=== PATIENT | female | born 1955 | race Caucasian/White ===

== ENCOUNTER 2019-12-08 13:23 | Emergency (ER) | payer OTHER, SELFPAY ==
--- NOTE | ~2019-12-08 | XR_ITS ---
XR foot LT min 3V DATE: 12/08/2019 13:57 INDICATION: Lateral foot pain. History of stress fracture. TECHNIQUE: 4 views COMPARISON: None FINDINGS: Very prominent plantar calcaneal enthesopathy. This posterior calcaneal enthesopathy as wel l. There is osteoarthritic change at the tibiotalar, tarsal and tarsometatarsal joints as well as the fi rst metatarsophalangeal joint. Hallux valgus and bunion deformity. No fracture or dislocation, periosteal reaction or bone destruction is detected. IMPRESSION: Polyarticular osteoarthritis Plantar and posterior calcaneal enthesopathy Hallux valgus and bunion deformity Reviewed, dictated and finalized at location A.
[2019-12-08 13:32] VITALS: BP 179/124; PULSE 90; RESP 20; TEMP 36.9; O2SAT 98
[2019-12-08 13:45] VITALS: BP 191/115
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
--- NOTE | 2019-12-08 14:28 | PC.NURSE ---
PT DECLINED ICE FOR COMFORT AND A WHEELCHAIR TO PT ROOM AND RADIOLOGY
[2019-12-08 14:30] VITALS: BP 196/110; PULSE 87
== END 2019-12-08 14:30 | disposition home or self-care (01) ==
PROVIDERS: Emergency Provider Registered Nurse; PCP Family Medicine
DX: M19.072 Primary osteoarthritis, left ankle and foot (principal); I48.91 Unspecified atrial fibrillation; E78.00 Pure hypercholesterolemia, unspecified; K21.9 Gastro-esophageal reflux disease without esophagitis; I10 Essential (primary) hypertension
CPT/HCPCS: 73630; 99213; G0463

== ENCOUNTER 2020-07-28 18:42 | Emergency (ER) | payer OTHER, SELFPAY ==
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
[2020-07-28 18:49] VITALS: PULSE 79; RESP 20; TEMP 36.8; O2SAT 98
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
[2020-07-28 19:22] VITALS: BP 142/88
== END 2020-07-28 19:45 | disposition home or self-care (01) ==
PROVIDERS: Emergency Provider Nurse Practitioner Family; PCP Family Medicine
DX: M79.621 Pain in right upper arm (principal); I48.91 Unspecified atrial fibrillation; E78.00 Pure hypercholesterolemia, unspecified; K21.9 Gastro-esophageal reflux disease without esophagitis; I10 Essential (primary) hypertension
CPT/HCPCS: 73080; 99213; G0463